=== PATIENT | male | born 1970 | race Caucasian/White ===

== ENCOUNTER 2021-09-18 18:11 | Emergency (ER) | payer MEDICARE ==
[2021-09-18 19:09] LABS: HEMOGLOBIN 14.6 gm/dl (14.0-17.5); RED BLOOD COUNT 5.15 M/UL (4.20-5.50); WHITE BLOOD COUNT 10.5 K/UL (4.5-11.0)
[2021-09-18 19:20] LABS: BUN/CREATININE RATIO 25 (0-10)
== END 2021-09-18 22:04 | disposition home or self-care (01) ==
LOC: ER1 18:11
PROVIDERS: Physician Assistant
DX: S32.028A Other fracture of second lumbar vertebra, initial encounter for closed fracture (principal); S32.038A Other fracture of third lumbar vertebra, initial encounter for closed fracture; S20.20XA Contusion of thorax, unspecified, initial encounter; E78.5 Hyperlipidemia, unspecified; I50.9 Heart failure, unspecified; Z88.5 Allergy status to narcotic agent; Z79.01 Long term (current) use of anticoagulants; F17.210 Nicotine dependence, cigarettes, uncomplicated; W22.8XXA Striking against or struck by other objects, initial encounter
CPT/HCPCS: 70450; 71045; 71260; 72125; 73090; 73130; 73552; 80053; 83690; 85025; 85610; 85730; 93005; 96374; 99284; J3010; Q9967